=== PATIENT | male | born 1965 | race Caucasian/White ===

== ENCOUNTER 2020-09-21 13:45 | Emergency (ER) | payer MEDICARE, OTHER ==
[2020-09-21] MEDS ORDERED: Ketorolac 30 MG/ML SDV IM ONE (15:21)
--- NOTE | 2020-09-21 18:13 | EDM.PDOC ---
ED HPI GENERAL MEDICAL PROBLEM - General Chief Complaint: Upper Extremity Injury/Pain Stated Complaint: MEDICAL VIA [facility] Time Seen by Provider: 09/21/20 14:00 Source of Information: Reports: Patient History Limitations: Reports: No Limitations - History of Present Illness INITIAL COMMENTS - FREE TEXT/NARRATIVE: pt called a ambulance because he was having severer left shoulder pain He was seen at [facility] in [facility] and did have a xray of the shoulder and there was a concern regarding rotator cuff injury. Onset: Gradual Duration: Week(s): Location: Reports: Upper Extremity, Left Associated Symptoms: Reports: No Other Symptoms - Related Data Allergies Allergy/AdvReac Type Severity Reaction Status Date / Time No Known Allergies Allergy Verified 09/21/20 15:46 Home Meds: Home Meds Albuterol Sulfate [Albuterol Sulfate Hfa] 2 puff IH ASDIRECTED 09/21/20 [History] Aspirin [Halfprin] 81 mg PO DAILY 09/21/20 [History] Clopidogrel [Plavix] 75 mg PO DAILY 09/21/20 [History] Isosorbide Mononitrate [Imdur] 60 mg PO BID 09/21/20 [History] Meclizine [Antivert] 25 mg PO TID 09/21/20 [History] Metoprolol Succinate 100 mg PO DAILY 09/21/20 [History] Nitroglycerin 0.4 mg SL ASDIRECTED 09/21/20 [History] Rosuvastatin [Crestor] 10 mg PO DAILY 09/21/20 [History] amLODIPine [Norvasc] 10 mg PO DAILY 09/21/20 [History] glipiZIDE [Glucotrol XL] 10 mg PO BID 09/21/20 [History] lisinopriL [Lisinopril] 40 mg PO DAILY 09/21/20 [History] Past Medical History HEENT History: Reports: Impaired Vision Cardiovascular History: Reports: High Cholesterol, Hypertension Respiratory History: Reports: SOB Musculoskeletal History: Reports: Back Pain, Chronic Endocrine/Metabolic History: Reports: Diabetes, Type II, Obesity/BMI 30+ Hematologic History: Reports: Anticoagulation Therapy - Past Surgical History Head Surgeries/Procedures: Reports: None HEENT Surgical History: Reports: Cataract Surgery Cardiovascular Surgical History: Reports: None Respiratory Surgical History: Reports: None Endocrine Surgical History: Reports: None Musculoskeletal Surgical History: Reports: Shoulder Surgery, Other (See Below) Other Musculoskeletal Surgeries/Procedures:: left ankle Dermatological Surgical History: Reports: None Social & Family History - Tobacco Use Years of Tobacco use: 38 Used Tobacco, but Quit: No - Recreational Drug Use Recreational Drug Use: No Review of Systems - Review of Systems Review Of Systems: See Below Constitutional: Reports: No Symptoms Ears: Reports: No Symptoms Nose: Reports: No Symptoms Mouth/Throat: Reports: No Symptoms Respiratory: Reports: No Symptoms Cardiovascular: Reports: No Symptoms, Other (pt had no chest pain) GI/Abdominal: Reports: No Symptoms Genitourinary: Reports: No Symptoms Musculoskeletal: Reports: Other (pt is tender over the left shoulder. ) ED EXAM, GENERAL - Physical Exam Exam: See Below Free Text/Narrative:: pt arrived with pain in the left shoulder. He recently had an xray which showed degenerative changes. Exam Limited By: No Limitations General Appearance: Alert, Anxious, Mild Distress Ears: Normal TMs Nose: Normal Inspection Throat/Mouth: Normal Inspection Head: Atraumatic Neck: Normal Inspection Respiratory/Chest: No Respiratory Distress Cardiovascular: Regular Rate, Rhythm, Other (c) GI/Abdominal: Soft, Non-Tender (Male) Exam: Deferred Rectal (Males) Exam: Deferred Back Exam: Normal Inspection Extremities: Other (pt is tender over the shoulder. He is having difficulty lifting the arm. ) Neurological: Alert, Oriented, Normal Cognition Course - Vital Signs Last Recorded V/S: Last Vital Signs Temp 36.7 C 09/21/20 14:03 Pulse 73 09/21/20 14:20 Resp 14 09/21/20 14:20 BP 164/90 H 09/21/20 14:20 Pulse Ox 92 L 09/21/20 14:20 - Orders/Labs/Meds Orders: Active Orders 24 hr Category Date Time Status EKG Documentation Completion [RC] ASDIRECTED Care 09/21/20 15:22 Active EKG 12 Lead [EK] Routine Ther 09/21/20 15:22 Ordered Labs: Laboratory Tests 09/21/20 Range/Units 15:30 Troponin I < 0.017 (0.000-0.056) ng/mL Meds: Medications Discontinued Medications Generic Name Dose Route Start Last Admin Trade Name Freq PRN Reason Stop Dose Admin Ketorolac Tromethamine 60 mg 09/21/20 15:21 09/21/20 15:50 Ketorolac 30 Mg/Ml Sdv IM 09/21/20 15:22 60 mg ONETIME ONE Administration Departure - Departure Time of Disposition: 18:13 Disposition: Home, Self-Care 01 Condition: Fair Clinical Impression: Rotator cuff disorder - Discharge Information Referrals: PCP,None [Primary Care Provider] - Care Plan Goals: schedule PT in [place], appt with ortho, naprosyn 500mg bid with food. Sepsis Event Note (ED) - Evaluation Sepsis Screening Result: No Definite Risk - Focused Exam Vital Signs: Vital Signs Temp Pulse Resp BP Pulse Ox 09/21/20 14:20 73 14 164/90 H 92 L 09/21/20 14:03 36.7 C 74 15 153/81 H 97 09/21/20 13:53 36.7 C 74 15 153/81 H 97 - My Orders Last 24 Hours: My Active Orders 09/21/20 15:22 EKG Documentation Completion [RC] ASDIRECTED EKG 12 Lead [EK] Routine - Assessment/Plan Last 24 Hours: My Active Orders 09/21/20 15:22 EKG Documentation Completion [RC] ASDIRECTED EKG 12 Lead [EK] Routine
== END 2020-09-21 18:26 | disposition home or self-care (01) ==
LOC: JP.ED 13:45
DX: M75.102 Unspecified rotator cuff tear or rupture of left shoulder, not specified as traumatic (principal); E78.00 Pure hypercholesterolemia, unspecified; I10 Essential (primary) hypertension; E11.9 Type 2 diabetes mellitus without complications; E66.9 Obesity, unspecified; Z72.0 Tobacco use; Z68.39 Body mass index [BMI] 39.0-39.9, adult; Z79.82 Long term (current) use of aspirin; Z79.899 Other long term (current) drug therapy
CPT/HCPCS: 36415; 84484; 93005; 96372; 99284; J1885

== ENCOUNTER 2021-11-14 17:08 | Emergency (ER) | payer MEDICARE, MEDICAID ==
[2021-11-14] MEDS ORDERED: Methocarbamol 500 MG Tab PO ONE (18:32)
[2021-11-14] MEDS ORDERED: Gabapentin 300 MG Cap PO ONE (18:33)
[2021-11-14] MEDS ORDERED: HYDROmorphone 1 MG/ML Syringe IM ONE (21:15)
[2021-11-14 21:23] LABS: ESTIMATED GFR 50 mL/min (>60)
== END 2021-11-14 23:13 | disposition home or self-care (01) ==
LOC: JP.ED 17:08
DX: M51.36 Other intervertebral disc degeneration, lumbar region (principal); E78.00 Pure hypercholesterolemia, unspecified; I10 Essential (primary) hypertension; E11.9 Type 2 diabetes mellitus without complications; E66.9 Obesity, unspecified; Z79.82 Long term (current) use of aspirin; Z79.899 Other long term (current) drug therapy; Z68.38 Body mass index [BMI] 38.0-38.9, adult
CPT/HCPCS: 36415; 72128; 72131; 80053; 85025; 86140; 96372; 99284; A9270-GY; J1170

== ENCOUNTER 2021-11-18 01:25 | Emergency (ER) | payer MEDICARE, MEDICAID | END 2021-11-18 02:15 | disposition left against medical advice (07) | LOC: JP.ED 01:25 | DX: Z53.21 Procedure and treatment not carried out due to patient leaving prior to being seen by health care provider (principal) ==